=== PATIENT | female | born 1965 | race Caucasian/White ===

== ENCOUNTER → 2016-06-12 | Outpatient (CLI) | payer BC, OTHER | LOC: RAD 01:11 | DX: N63 Unspecified lump in breast (principal) ==

== ENCOUNTER → 2017-03-18 | Outpatient (CLI) | payer BC, OTHER | LOC: ULTRA 08:51 → RAD 08:51 → EDSTATUS 09:10 → ULTRA 11:32 | DX: N63.0 Unspecified lump in unspecified breast (principal); N60.02 Solitary cyst of left breast ==